=== PATIENT | male | born 1950 | race Caucasian/White ===

== ENCOUNTER 2016-10-13 13:09 | Emergency (ER) | payer OTHER, MEDICAID ==
[2016-10-13 13:29] VITALS: RESP 18
--- NOTE | 2016-10-13 13:48 | EDPHY ---
H & P Time Seen by Provider: 10/13/16 13:21 HPI/ROS: CHIEF COMPLAINT: abdominal pain HISTORY OF PRESENT ILLNESS: Patient is a 66-year-old male who presents to the emergency department with ongoing abdominal discomfort for the past 3 weeks. I think I have a viral infection. It has been going on for over 3 weeks. Patient states that he has periumbilical discomfort. This initially was waxing and waning but is been constant for the past 5-7 days. His partner brought amoxicillin back from [place] he has taken 3 tablets in the last 24 hours. He has had nausea with dry heaves. He had 1 episode of diarrhea 2 days ago that was black. He has not had any other episodes of black stool. He denies fevers or chills. No dysuria or frequency. REVIEW OF SYSTEMS: My complete review of systems is negative except as mentioned in the HPI. Past Medical/Surgical History: Includes reactive airway disease, BPH, hypertension, PTSD, depression, alcohol abuse Past surgical history: Vasectomy, tonsillectomy Social history: The patient drinks minimally. He stop smoking cigarettes 4 days ago. He uses marijuana regularly. Smoking Status: Heavy smoker Physical Exam: Vitals noted. GENERAL: Well-appearing, in no acute distress, alert. HEENT: Eyes normal to inspection, normal pharynx, no signs of dehydration. NECK: No thyromegaly, no lymphadenopathy, supple. RESPIRATORY: Clear to auscultation bilaterally, no rales, rhonchi or wheezing. CVS: Regular rate and rhythm, no rubs, murmurs, or gallops. ABDOMEN: Soft, mild epigastric tenderness to palpation with no rebound or guarding, nondistended, no organomegaly. BACK: Normal to inspection, no CVA tenderness. SKIN: Normal color, no rash, warm, dry. No pallor. EXTREMITIES: No pedal edema, no calf tenderness, no joint swelling. NEURO/PSYCH: Alert and oriented x3, normal mood and affect, normal motor sensory exam. Constitutional: Initial Vital Signs Temperature (C) 36.8 C 10/13/16 13:28 Heart Rate 64 10/13/16 13:28 Respiratory Rate 18 10/13/16 13:28 Blood Pressure 139/82 H 10/13/16 13:28 O2 Sat (%) 98 10/13/16 13:28 O2 Delivery Mode Room Air Allergies/Adverse Reactions: Penicillins Allergy (Unknown, Verified 11/21/12 19:31) ciprofloxacin [From Cipro] Allergy (Verified 11/21/12 19:31) ciprofloxacin HCl [From Cipro] Allergy (Verified 11/21/12 19:31) doxazosin Allergy (Verified 11/21/12 19:31) oxycodone [Oxycodone] Allergy (Verified 11/21/12 19:31) Other-Enter Comments Sulfa (Sulfonamide Antibiotics) Allergy (Verified 11/21/12 19:31) Home Medications: Medication Instructions Recorded Herbals/Supplements -Info Only 1 tab DAILY PRN 11/21/12 CALCIUM 600 + VIT D TABLET 1 tab DAILY 06/22/16 CRANBERRY 1 tab DAILY 06/22/16 Glucosamine 1 tab DAILY 06/22/16 IBUPROFEN 2 tab Q2-4PRN PRN 06/22/16 Multivitamin (*) 1 tab DAILY 06/22/16 VITAMIN A & D SOFTGEL 1 tab DAILY 06/22/16 VITAMIN B COMP W-C 1 tab DAILY 06/22/16 VITAMIN E 1 tab DAILY 06/22/16 Hydrocodone/APAP 5/325 [[place] 1 - 2 tab PO Q4 #13 tab 10/13/16 5/325 (RX)] Tamsulosin HCl [Flomax] 0.4 mg PO DAILY #4 cap 10/13/16 Medical Decision Making ED Course/Re-evaluation: In the emergency department I discussed possible etiologies with the patient's care provider. IV was placed. Laboratory studies were ordered. Patient was given normal saline 500 mL IV for hydration. Patient was given Pepcid 20 mg IV. I rechecked the patient on numerous occasions while here. He is stable throughout his stay. CT of the abdomen pelvis: Please refer the dictated report. The patient is noted to have multiple kidney stones bilaterally. The patient does have a left stone in the ureter. There also stones noted in the bladder. I discussed the result with the patient. I had not yet obtained a urine. This was ordered. Patient requested discharge. I explained my reasons for wanting wait for the urine sample. My repeat exam abdomen was soft nontender nondistended. 18 20: Urine showed red cells with no signs of infection. I discussed this with the patient. Patient is requesting discharge. I informed him of the treatment of kidney stones. He will follow up with Urology. At time of discharge she was feeling better. Abdomen is soft, nontender nondistended. He was given a prescription of Flomax as well as hydrocodone. I gave the patient warnings prior to leaving. He will return with worsening symptoms. Differential Diagnosis: My differential includes but is not limited to small-bowel obstruction, perforation, peptic ulcer disease, cholecystitis, pancreatitis, electrolyte abnormality, sugar abnormality, volvulus, intussusception, GI bleed, diverticulitis - Data Points Laboratory Results: Laboratory Results 10/13/16 14:43 10/13/16 14:43 10/13/16 10/13/16 17:48 14:43 WBC 9.36 10^3/uL (3.80-9.50) RBC 4.58 10^6/uL (4.40-6.38) Hgb 13.4 L g/dL (13.7-17.5) Hct 40.1 % (40.0-51.0) MCV 87.6 fL (81.5-99.8) MCH 29.3 pg (27.9-34.1) MCHC 33.4 g/dL (32.4-36.7) RDW 12.9 % (11.5-15.2) Plt Count 281 10^3/uL (150-400) MPV 11.1 fL (8.7-11.7) Neut % (Auto) 73.0 % (39.3-74.2) Lymph % (Auto) 18.9 % (15.0-45.0) [place] % (Auto) 6.7 % (4.5-13.0) Eos % (Auto) 0.7 % (0.6-7.6) Baso % (Auto) 0.5 % (0.3-1.7) Nucleat RBC Rel Count 0.0 % (0.0-0.2) Absolute Neuts (auto) 6.82 H 10^3/uL (1.70-6.50) Absolute Lymphs (auto) 1.77 10^3/uL (1.00-3.00) Absolute Monos (auto) 0.63 10^3/uL (0.30-0.80) Absolute Eos (auto) 0.07 10^3/uL (0.03-0.40) Absolute Basos (auto) 0.05 10^3/uL (0.02-0.10) Absolute Nucleated RBC 0.00 10^3/uL (0-0.01) Immature Gran % 0.2 % (0.0-1.1) Immature Gran # 0.02 10^3/uL (0.00-0.10) Sodium 142 mEq/L (134-144) Potassium 3.6 mEq/L (3.5-5.2) Chloride 101 mEq/L (97-110) Carbon Dioxide 28 mEq/l (22-31) Anion Gap 13 mEq/L (8-16) BUN 16 mg/dL (7-23) Creatinine 0.8 mg/dL (0.7-1.3) Estimated GFR > 60 Glucose 96 mg/dL (70-100) Calcium 9.6 mg/dL (8.5-10.4) Urine Color YELLOW Urine Appearance HAZY Urine pH 7.0 (5.0-7.5) Ur Specific [place] > 1.035 H (1.002-1.030) Urine Protein NEGATIVE (NEGATIVE) Urine Ketones TRACE H (NEGATIVE) Urine Blood 3+ H (NEGATIVE) Urine Nitrate NEGATIVE (NEGATIVE) Urine Bilirubin NEGATIVE (NEGATIVE) Urine Urobilinogen NEGATIVE EU (0.2-1.0) Ur Leukocyte Esterase NEGATIVE (NEGATIVE) Urine RBC 50-182 H /hpf (0-3) Urine WBC 1-3 /hpf (0-3) Ur Epithelial Cells TRACE /lpf (NONE-1+) Urine Mucus 4+ H /lpf (NONE-1+) Ur Culture Indicated? NOT INDICATED (NI) Urine Glucose NEGATIVE (NEGATIVE) Departure - Departure Disposition: Home, Routine, Self-Care Clinical Impression: Kidney stone Abdominal pain Qualifiers: Abdominal location: epigastric Qualifier Code: (R10.13) Epigastric pain Condition: Good Instructions: Abdominal Pain (ED), Kidney Stones (ED) Additional Instructions: Return with increasing pain, fever, vomiting or any other concerns. Referrals: Gerald Seay MD [Medical Doctor] - 5-7 days, if not improved Prescriptions: Tamsulosin HCl [Flomax] 0.4 mg PO DAILY #4 cap Hydrocodone/APAP 5/325 [Fisher 5/325 (RX)] 1 - 2 tab PO Q4 #13 tab
[2016-10-13 14:57] LABS: % IMMATURE GRANULYOCYTES 0.2 % (0.0-1.1); ABSOLUTE IMMATURE GRANULOCYTES 0.02 10^3/uL (0.00-0.10); ADD DIFF? NO; ADD MORPH? NO; ADD SCAN? NO; ATYPICAL LYMPHOCYTE FLAG 0 (0-99); FRAGMENT RBC FLAG 0 (0-99); HEMATOCRIT 40.1 % (40.0-51.0); HEMOGLOBIN 13.4 g/dL (13.7-17.5); LEFT SHIFT FLG 0 (0-99); LIPEMIA HEMOLYSIS FLAG 80 (0-99); MEAN CELL HEMOGLOBIN 29.3 pg (27.9-34.1); MEAN CELL HEMOGLOBIN CONCENTR. 33.4 g/dL (32.4-36.7); MEAN CELL VOLUME 87.6 fL (81.5-99.8); MEAN PLATELET VOLUME 11.1 fL (8.7-11.7); PLATELET CLUMPS FLAG 10 (0-99); PLATELET COUNT 281 10^3/uL (150-400); RED BLOOD CELL COUNT 4.58 10^6/uL (4.40-6.38); RED CELL DISTRIBUTION WIDTH 12.9 % (11.5-15.2)
[2016-10-13 15:15] LABS: ANION GAP 13 mEq/L (8-16); CALCIUM 9.6 mg/dL (8.5-10.4); CARBON DIOXIDE 28 mEq/l (22-31); CHLORIDE 101 mEq/L (97-110); CREATININE 0.8 mg/dL (0.7-1.3); GLOMERULAR FILTRATION RATE > 60; GLUCOSE 96 mg/dL (70-100); POTASSIUM 3.6 mEq/L (3.5-5.2); SODIUM 142 mEq/L (134-144)
[2016-10-13] MEDS ORDERED: IOPAMIDOL (ISOVUE-300) 100 ML BTL IV ONE (15:43)
--- NOTE | 2016-10-13 16:51 | CT ---
CT Scan of the Abdomen and Pelvis (With Contrast) Clinical Indications: Abdominal pain Technique: 90 mL of Isovue 300 were given intravenously by machine power injection. Multidetector he lical CT imaging was performed from the diaphragm to the symphysis pubis. 10 minute delayed imaging w as also obtained. Dose reduction techniques were utilized. COMPARISON STUDY: April 11, 2012. Findings: Lung bases are clear. Liver and spleen enhance normally. The pancreas is normal in appearan ce. Fusiform thickening of the adrenal glands is again noted bilaterally compatible with adenomatous hyperplasia, unchanged. Multiple nonobstructing calculi are present within both kidneys, up to 8 mm in size on the left. Ther e are multiple renal cysts present bilaterally. A 5 mm nonobstructing calculus is present within the proximal left ureter at the UPJ. Within the pelvis, there are 2 calculi present within the urinary bladder, measuring 8 mm posteriorly on the right and 5 mm posteriorly on the left. The prostate is diffusely enlarged. Extensive sigmoid diverticulosis is identified without features of acute diverticulitis. Vascular calcifications are present within the abdominal aorta and proximal iliac vessels without ane urysm. Impression: 1. Extensive bilateral nephrolithiasis. 5 mm nonobstructing calculus proximal left ureter, with 2 sep arate calculi present in the dependent urinary bladder. 2. Sigmoid diverticulosis without CT evidence of acute diverticulitis. 3. Bilateral adrenal adenomatous hyperplasia, unchanged. Results called to Dr. Holden at 1645 PM
[2016-10-13 18:06] LABS: COLOR YELLOW; LEUKOCYTE ESTERASE,URINE NEGATIVE (NEGATIVE); NITRITE,URINE NEGATIVE (NEGATIVE)
[2016-10-13 18:13] LABS: MUCUS 4+ /lpf (NONE-1+); RBC,URINE 50-182 /hpf (0-3)
[2016-10-13 18:31] VITALS: BP 179/105; PULSE 86; TEMP 98.4; O2SAT 97
== END 2016-10-13 18:31 | disposition home or self-care (01) ==
LOC: EDBD → EDUNIT#
DX: N20.0 Calculus of kidney (principal); I10 Essential (primary) hypertension; J45.909 Unspecified asthma, uncomplicated; F17.200 Nicotine dependence, unspecified, uncomplicated
CPT/HCPCS: 74177; 99285; Q9967

== ENCOUNTER 2017-12-11 04:14 | Inpatient (IN) | payer OTHER, MEDICAID ==
[2017-12-11] MEDS ORDERED: FAMOTIDINE 20 MG TAB PO ONE (04:22)
[2017-12-11] MEDS ORDERED: PANTOPRAZOLE SODIUM 40 MG VIAL IVP ONE (04:22)
[2017-12-11] MEDS ORDERED: NS 1,000 ML IV ONE ×2 (04:22)
[2017-12-11] MEDS ORDERED: ONDANSETRON 4 MG/2 ML VIAL IVP ONE (04:22)
[2017-12-11 04:29] LABS: PLATELET COUNT 308 10^3/uL (150-400)
[2017-12-11] MEDS ORDERED: FAMOTIDINE 20 MG/2 ML SDV IVP ONE (04:30)
[2017-12-11] MEDS ORDERED: FAMOTIDINE 20 MG/NACL/50 ML BAG IV ONE (04:30)
[2017-12-11 04:41] LABS: INR 1.1 (0.83-1.16); PROTIME(PATIENT) 14.4 SEC (12.0-15.0)
--- NOTE | 2017-12-11 05:30 | EDPHY ---
H & P Stated Complaint: vomiting blood Time Seen by Provider: 12/11/17 04:23 HPI/ROS: HPI The patient presents with hematemesis which has been present since 3:00 a.m.. Last night, he was not feeling well, he was trying to sleep at 3:00 a.m. But was belching. He went to the bathroom and vomited bloody vomitus with clots. He believes he fainted and then went back to bed. He had 2 other similar episodes of vomiting and did faint again. He felt very dizzy and was concerned so he called the paramedics. Upon arrival, they noticed about 300 mL of bright red blood on the ground. His initial blood pressure was 80 over palpable. They started him on IV fluids with some improvement in his blood pressure. Currently, the patient is feeling lightheaded and slightly nauseated. He does not have any abdominal pain. He denies any dark or bloody stools. He takes aspirin 325 mg daily for prostatitis. He has no prior history of similar. He denies any recent alcohol use and says that he drinks a case of beer in a year. He lives alone.. REVIEW OF SYSTEMS Constitutional: No fever, no chills. Eyes: No discharge. ENT: No sore throat. Cardiovascular: No chest pain, no palpitations. Respiratory: No cough, no shortness of breath. Gastrointestinal: No abdominal pain, no vomiting. Genitourinary: No hematuria. Musculoskeletal: No back pain. Skin: No rashes. Neurological: No headache. PMHx: Chronic prostatitis Soc Hx: Lives in an apartment, history of tobacco use PHYSICAL General Appearance: Alert, no distress Eyes: Pupils equal and round no pallor or injection ENT, Mouth: Mucous membranes moist Respiratory: There are no retractions, lungs are clear to auscultation Cardiovascular: Regular rate and rhythm Gastrointestinal: Abdomen is soft and non-tender, no masses, bowel sounds normal Rectal exam reveals small amount of brown stool Neurological: A&O, moves all extremities Skin: Warm and dry, no rashes Musculoskeletal: Neck is supple non tender Extremities: symmetrical, full range of motion Psychiatric: Patient is oriented X 3, there is no agitation Source: Patient, EMS Exam Limitations: No limitations - Personal History Current Tetanus/Diphtheria Vaccine: Yes Current Tetanus Diphtheria and Acellular Pertussis (TDAP): Yes Tetanus Vaccine Date: 2007 - Medical/Surgical History Hx Asthma: No Hx Chronic Respiratory Disease: No Hx Diabetes: No Hx Cardiac Disease: No Hx Renal Disease: No Hx Cirrhosis: No Hx Alcoholism: No Hx HIV/AIDS: No Hx Splenectomy or Spleen Trauma: No Other PMH: PMH: Prostatitis, HTN, tonsillectomy - Social History Smoking Status: Heavy smoker Constitutional: Initial Vital Signs Temperature (C) 36.7 C 12/11/17 04:15 Heart Rate 102 H 12/11/17 04:15 Respiratory Rate 18 12/11/17 04:15 Blood Pressure 110/66 12/11/17 04:15 O2 Sat (%) 97 12/11/17 04:15 O2 Delivery Mode Room Air Allergies/Adverse Reactions: Penicillins Allergy (Unknown, Verified 12/11/17 04:25) ciprofloxacin [From Cipro] Allergy (Verified 12/11/17 04:25) ciprofloxacin HCl [From Cipro] Allergy (Verified 12/11/17 04:25) doxazosin Allergy (Verified 12/11/17 04:25) oxycodone [Oxycodone] Allergy (Verified 12/11/17 04:25) Other-Enter Comments Sulfa (Sulfonamide Antibiotics) Allergy (Verified 12/11/17 04:25) Home Medications: Medication Instructions Recorded Herbals/Supplements -Info Only 1 tab DAILY PRN 11/21/12 CALCIUM 600 + VIT D TABLET 1 tab DAILY 06/22/16 CRANBERRY 1 tab DAILY 06/22/16 Glucosamine 1 tab DAILY 06/22/16 IBUPROFEN 2 tab Q2-4PRN PRN 06/22/16 Multivitamin (*) 1 tab DAILY 06/22/16 VITAMIN A & D SOFTGEL 1 tab DAILY 06/22/16 VITAMIN B COMP W-C 1 tab DAILY 06/22/16 VITAMIN E 1 tab DAILY 06/22/16 Hydrocodone/APAP 5/325 [[place] 1 - 2 tab PO Q4 #13 tab 10/13/16 5/325 (RX)] Tamsulosin HCl [Flomax] 0.4 mg PO DAILY #4 cap 10/13/16 Aspirin 12/11/17 Gabapentin 12/11/17 Lisinopril 12/11/17 Medical Decision Making - Diagnostics EKG Interpretation: EKG: Complete interpretation has been separately recorded in the [email or web address] archive. Summary impression: Normal sinus rhythm with PVCs Differential Diagnosis: This is a 67-year-old male with history of chronic prostatitis who presents brought in by ambulance for hematemesis with multiple syncopal episodes. Found to be hypotensive by paramedics in the field. Here his blood pressure is improved and vital signs are normal. He has no ongoing vomiting. He has no epigastric tenderness. Rectal exam reveals small amount of brown stool. Differential diagnosis includes gastritis, duodenal ulcer, esophagitis. In the emergency department, patient received IV fluids, Pepcid, PPI. Labs were checked and revealed drop in hemoglobin from about 1 year ago by 4 points. He does have an anion gap acidosis and elevated BUN. I consulted with Dr. Bradley of GI who recommends keeping the patient NPO and they will see him later today. I consulted with the hospitalist public relations coordinator Dr. Parker who will admit the patient. I have updated the patient of the plan. - Data Points Laboratory Results: Laboratory Results 12/11/17 04:20 12/11/17 04:20 12/11/17 12/11/17 12/11/17 04:20 04:20 04:20 WBC RBC Hgb Hct MCV MCH MCHC RDW Plt Count MPV Neut % (Auto) Lymph % (Auto) [place] % (Auto) Eos % (Auto) Baso % (Auto) Nucleat RBC Rel Count Absolute Neuts (auto) Absolute Lymphs (auto) Absolute Monos (auto) Absolute Eos (auto) Absolute Basos (auto) Absolute Nucleated RBC Immature Gran % Immature Gran # PT 14.4 SEC SEC (12.0-15.0) INR 1.10 (0.83-1.16) APTT 23.5 SEC SEC (23.0-38.0) Sodium 148 mEq/L H mEq/L (135-145) Potassium 3.2 mEq/L L mEq/L (3.5-5.2) Chloride 109 mEq/L mEq/L (97-110) Carbon Dioxide 17 mEq/l L mEq/l (22-31) Anion Gap 22 mEq/L H mEq/L (8-16) BUN 26 mg/dL H mg/dL (7-23) Creatinine 1.0 mg/dL mg/dL (0.7-1.3) Estimated GFR > 60 Glucose 236 mg/dL H mg/dL (70-100) Calcium 8.8 mg/dL mg/dL (8.5-10.4) Total Bilirubin 0.3 mg/dL mg/dL (0.1-1.4) Conjugated Bilirubin 0.3 mg/dL mg/dL (0.0-0.5) Unconjugated Bilirubin 0.0 mg/dL mg/dL (0.0-1.1) AST 14 IU/L L IU/L (17-59) ALT 18 IU/L L IU/L (21-72) Alkaline Phosphatase 58 IU/L IU/L (38-126) Total Protein 6.2 g/dL L g/dL (6.3-8.2) Albumin 3.6 g/dL g/dL (3.5-5.0) Lipase 54 IU/L IU/L (23-300) Patient ABO/Rh A POSITIVE Antibody Screen NEGATIVE 12/11/17 04:20 WBC 11.48 10^3/uL H 10^3/uL (3.80-9.50) RBC 3.53 10^6/uL L 10^6/uL (4.40-6.38) Hgb 9.1 g/dL L g/dL (13.7-17.5) Hct 29.3 % L % (40.0-51.0) MCV 83.0 fL fL (81.5-99.8) MCH 25.8 pg L pg (27.9-34.1) MCHC 31.1 g/dL L g/dL (32.4-36.7) RDW 16.3 % H % (11.5-15.2) Plt Count 308 10^3/uL 10^3/uL (150-400) MPV 12.1 fL H fL (8.7-11.7) Neut % (Auto) 50.1 % % (39.3-74.2) Lymph % (Auto) 40.6 % % (15.0-45.0) [place] % (Auto) 7.5 % % (4.5-13.0) Eos % (Auto) 1.1 % % (0.6-7.6) Baso % (Auto) 0.4 % % (0.3-1.7) Nucleat RBC Rel Count 0.0 % % (0.0-0.2) Absolute Neuts (auto) 5.74 10^3/uL 10^3/uL (1.70-6.50) Absolute Lymphs (auto) 4.66 10^3/uL H 10^3/uL (1.00-3.00) Absolute Monos (auto) 0.86 10^3/uL H 10^3/uL (0.30-0.80) Absolute Eos (auto) 0.13 10^3/uL 10^3/uL (0.03-0.40) Absolute Basos (auto) 0.05 10^3/uL 10^3/uL (0.02-0.10) Absolute Nucleated RBC 0.00 10^3/uL 10^3/uL (0-0.01) Immature Gran % 0.3 % % (0.0-1.1) Immature Gran # 0.04 10^3/uL 10^3/uL (0.00-0.10) PT INR APTT Sodium Potassium Chloride Carbon Dioxide Anion Gap BUN Creatinine Estimated GFR Glucose Calcium Total Bilirubin Conjugated Bilirubin Unconjugated Bilirubin AST ALT Alkaline Phosphatase Total Protein Albumin Lipase Patient ABO/Rh Antibody Screen Medications Given: Sodium Chloride (Ns) 1,000 mls @ 150 mls/hr IV CONT EARLE Stop: 06/09/18 05:44 Last Admin: 12/11/17 06:38 Dose: 1,000 mls Discontinued Medications Famotidine (Pepcid) 20 mg IVP EDNOW ONE Stop: 12/11/17 04:31 Last Admin: 12/11/17 04:36 Dose: 20 mg Sodium Chloride (Ns) 1,000 mls @ 0 mls/hr IV EDNOW ONE; Wide Open PRN Reason: Protocol Stop: 12/11/17 04:23 Last Admin: 12/11/17 04:35 Dose: 1,000 mls Sodium Chloride (Ns) 1,000 mls @ 0 mls/hr IV EDNOW ONE; Wide Open PRN Reason: Protocol Stop: 12/11/17 04:23 Last Admin: 12/11/17 04:35 Dose: 1,000 mls Ondansetron HCl (Zofran) 4 mg IVP EDNOW ONE Stop: 12/11/17 04:23 Last Admin: 12/11/17 04:38 Dose: 4 mg Pantoprazole Sodium (Protonix) 80 mg IVP EDNOW ONE Stop: 12/11/17 04:23 Last Admin: 12/11/17 04:39 Dose: 80 mg Departure - Departure Disposition: [facility] Clinical Impression: Upper GI bleed, Increased anion gap metabolic acidosis Anemia Qualifiers: Anemia type: unspecified type Qualified Code(s): D64.9 - Anemia, unspecified Condition: Fair
[2017-12-11] MEDS ORDERED: ONDANSETRON 4 MG/2 ML VIAL IVP PRN ×2 (05:33→11:22)
[2017-12-11] MEDS ORDERED: LORazepam 2 MG/ML INJ IVP PRN (05:33)
[2017-12-11] MEDS ORDERED: PROTOCOL MAGNESIUM 1 DOSE IV PRN (06:12)
[2017-12-11] MEDS ORDERED: PROTOCOL POTASSIUM 1 DOSE MISC PRN (06:12)
[2017-12-11] MEDS: NS 1,000 ML IV SCH (06:38)
--- NOTE | 2017-12-11 08:11 | GHP ---
[f rep st] HISTORY AND PHYSICAL DATE OF ADMISSION: 12/11/2017 PRIMARY CARE PHYSICIAN: [facility]. SOURCE: Patient provides history, is a fair historian. EMR was reviewed and case discussed with ED provider. CHIEF COMPLAINT: Hematemesis. HISTORY OF PRESENT ILLNESS: This is a very pleasant 67-year-old gentleman with past medical history significant for hypertension, prostatitis, and murmur, who presents to the emergency department today with complaints of several episodes of hematemesis and syncope. The patient reports that he woke up at approximately 3:30 with a sensation that he had something in his throat. He also developed some nausea and subsequently had an episode of syncope, and woke up, he was covered in blood. The patient woke up. He had noted some lightheadedness. No chest pain. No palpitations. No shortness of eva th, and he subsequently had 2 more episodes of hematemesis, at which point he called 9-1-1. He denie s any recent melena or changes in stool. No diarrhea. He denies any abdominal pain or discomfort. He does note several days of increasing fatigue, but shortness of breath or presyncope until this mor geronimo. EMS arrived and reported to ED provider that they had noted approximately 300 or more mL of bl ood in the patient's bathroom and home. His initial systolic blood pressure was noted to be in the 8 0s. The patient does report a history of melenic stools back in July, which was felt to possibly be related to an acute GI illness. Patient states that he had guaiac occult stools performed during and following recovery, which returned negative. He never underwent any kind of colonoscopy or EGD previously. In the emergency department, the patient was noted to have slightly decreased blood pressure, which d id resolve after 2 L of IV fluid. Systolically was in the 90s, now in the low 110s. The patient has not had any further episodes of hematemesis, and heart rate has normalized from the low 100 to 70s a nd 80s. REVIEW OF SYSTEMS: Patient reporting a 1-week history of clear rhinorrhea. Otherwise, remainder rev iew of systems negative except as noted above. ALLERGIES: To penicillin, Cipro, doxazosin, oxycodone, sulfa. HOME MEDICATIONS: Including lisinopril, gabapentin, aspirin, vitamin E, vitamin B, vitamin A, tamsul osin, multivitamin, ibuprofen, aspirin. The patient takes 325 mg aspirin on a daily basis reported for his prostatitis. [place] p.r.n., glucos amine, cranberry, calcium with vitamin D tabs. PAST MEDICAL HISTORY: Significant for hypertension, prostatitis, history of murmur. PAST SURGICAL HISTORY: Significant for tonsillectomy and adenoidectomy, and vasectomy. FAMILY HISTORY: Significant for sister with peptic ulcer disease. SOCIAL HISTORY: Patient lives with his fiancee. He quit smoking less than 3 months ago. He reports drinking just 1 drink weekly, and marijuana once monthly. Cor status is full. PHYSICAL EXAM: VITAL SIGNS: Vitals reported on scene with systolic blood pressure in the 80s, impro kala to 110/66. Upon arrival to the ER, the heart rate 102, respiratory rate 18, O2 sat is 97% on mago m air, temperature 36.7. Current vitals available: Blood pressure 151/76, heart rate 83, respirator y rate 18, O2 sat 98% on room air, with a temperature 36.4. GENERAL: No acute distress. Patient is lying quietly in bed. He does appear fatigued and pale. HEAD: Normocephalic, atraumatic. SKIN: Patient with a black irregularly irregular outlined flat mole on his left adventism. Otherwise, a few _ on his back, and pale. ENT: Mucous membranes appear moist. Patient does have a few drops of dried blood around his mouth. No nasal discharge. EYES: Extraocular muscles are intact. Pupils equal, round, react t o light bilaterally and symmetric. No scleral icterus or conjunctival injection. Patient does have pale conjunctiva bilaterally. NECK: Supple. Trachea midline. CV: Regular rate and rhythm. Patie nt with a 2/6 systolic murmur appreciated at the left sternal border. ABDOMEN: Positive bowel sounds. Soft, nontender to palpation. No rebound, guarding, or masses appr eciated. RESPIRATORY: Lungs are clear to auscultation bilaterally. No wheezes, rales, or rhonchi. : No s uprapubic tenderness to palpation. No Tovar catheter in place. EXTREMITIES: Generalized weakness, but moves all extremities. Strength overall grossly normal. NEURO: No crania l nerve deficits. No facial drooping. Moves all extremities. Sensation intact. PSYCH: Thought process, content and questions are appropriate. Patient is not agitated. He is plea angelique and cooperative. LABORATORY STUDIES: WBC 11.48, H and H is 9.1, 29.3, MCV 83.0, platelet count is 308, MCV of 83.0. No bands. PT 14.4, INR is 1.10, PTT is 23.5. Sodium 148, potassium 3.2, chloride 109, CO2 of 17, an ion gap 22, BUN is 26, creatinine is 1.0. GFR greater than 60, glucose 236, calcium 8.8, total bili 0.3, conjugated bili 0.3, ALT is 18, AST is 14, alk phos is 58, total protein 6.2, albumin 3.6, lipas e 54. ASSESSMENT AND PLAN: A pleasant 67-year-old gentleman, who presents to the emergency department foll owing episode hematemesis and syncope. 1. Upper gastrointestinal bleeding. Differential diagnosis including bleeding gastric ulcer, gastro kristine, and nonsteroidal antiinflammatory drugs induced possibility, with daily aspirin use, atriovent ricular malformation, less likely mass. The patient has not had any further episodes of hematemesis. He is status post famotidine and Protonix in the emergency department. Gastroenterology was consul branden from the emergency department. Will plan to see the patient this morning and likely undergo endo scopy. The patient will remain n.p.o. until evaluated by GI. 2. Acute blood loss anemia with acute upper gastrointestinal bleeding as noted above. The patient's initial H and H are stable. Blood pressures are stabilized. The patient would accept blood product s if needed, and he has already been typed and screened from the emergency department. We will plan to repeat an H and H 4 hours from the initial. 3. Hypotension. Transient in setting of acute blood loss anemia. Patient has responded appropriatel y to IV fluids. We will plan to monitor H and H later this morning. Transfuse as needed. Continue with IV fluid hydration. 4. Nausea and vomiting, improved. Continue with antiemetics p.r.n. 5. Hyponatremia, likely related to volume contraction in the setting of acute nausea, vomiting, and hematemesis. Status post 2 L IV fluid in the emergency department. We will plan to repeat a BMP, wi th a repeat H and H in a few hours. 6. Hypokalemia secondary to gastrointestinal losses with hematemesis. We will check a mag and repea t a BMP in a few hours. Replacement protocol has been ordered, IV while patient is n.p.o. 7. Anion gap acidosis. The patient does have mildly elevated glucose, but suspect this is more rela branden to lactic acidosis in setting of acute blood loss contraction. Continue with IV fluid hydration, status post 2 L in the emergency department and a repeat BMP later this morning. 8. Hyperglycemia without previous history of diabetes. Continue with IV fluid hydration. The patie nt will monitor with Accu-Cheks and p.r.n. sliding scale. If continues to rise, we will plan to furt her evaluate, otherwise, anticipate with fluids should improve and patient can follow up with primary care physician. 9. Chronic prostatitis. Holding nonsteroidal antiinflammatory drugs and p.o. medications at this ti me. Monitor for any evidence of urinary retention. 10. Benign essential hypertension. Blood pressures just recently improved after IV fluids. We will plan to monitor. Consider p.r.n. antihypertensives if needed. 11. Fluid, electrolyte, nutrition, IV fluids with normal saline. Electrolyte monitoring replacement as noted above. Inpatient diet will be n.p.o. at this time, pending GI evaluation. 12. Prophylaxis. Sequential compression devices. Holding anticoagulation in the setting of acute g astrointestinal bleeding. COR STATUS: Full. DISPOSITION: Patient admitted to observation status, on the medical floor at this time pending GI ev aluation and likely endoscopy. /[id number]/MODL
[2017-12-11] MEDS ORDERED: MAGNESIUM SULF 1 GM/DEXTROSE 100 ML IV ONE (09:06)
--- NOTE | 2017-12-11 09:07 | CPEKG ---
Heart Rate: 77 RR Interval: 779 P-R Interval: 136 QRSD Interval: 102 QT Interval: 432 QTC Interval: 489 P Corona: 56 QRS Corona: 40 T Wave Corona: -20 EKG Severity - ABNORMAL ECG - EKG Impression: SINUS RHYTHM EKG Impression: VENTRICULAR PREMATURE COMPLEX EKG Impression: PROBABLE INFERIOR INFARCT, AGE INDETERMINATE EKG Impression: BORDERLINE PROLONGED QT INTERVAL EKG Impression: NONSPECIFIC ST_T WAVE ABNORMAILITES Electronically Signed By: Mitchell Gray 18-Dec-2017 10:32:46
[2017-12-11] MEDS ORDERED: POTASSIUM Cl (KCl) 100 ML IV SCH ×2 (09:15→23:45)
--- NOTE | 2017-12-11 10:02 | HOSPPROG ---
Hospitalist Progress Note Assessment/Plan: Patient is a 67-year-old gentleman who presented the emergency room with heme at emesis. He developed some nausea and then had a syncopal episode and when he woke up he was covered in blood. He called 911 and was transferred to the emergency room. Today is my 1st encounter with the patient. Chart reviewed. * upper GI bleed -hemoglobin hematocrit have trended down -gastroenterology is to see him today -will keep him NPO continue a PPI * acute blood loss anemia -serial h & H * hypotension -resolved * hypokalemia -on potassium protocol * anion gap acidosis -improving w hydration * hyperglycemia * chronic prostatitis * BPH *Plan: to be evaluated by GI today, cont supportive care Subjective: Negro has no c/o Objective: Vital Signs Temp Pulse Resp BP Pulse Ox 36.4 C 83 18 151/76 H 98 12/11/17 06:12 12/11/17 06:12 12/11/17 06:12 12/11/17 06:12 12/11/17 06:12 Laboratory Results 12/11/17 08:32 12/11/17 08:32 12/10/17 12/11/17 12/12/17 05:59 05:59 05:59 Intake Total 1999 Balance 1999 PT 14.4 SEC (12.0-15.0) 12/11/17 04:20 INR 1.10 (0.83-1.16) 12/11/17 04:20 - Physical Exam Constitutional: no apparent distress, appears nourished Eyes: PERRL Ears, Nose, Mouth, Throat: hearing normal Respiratory: no respiratory distress Skin: warm, No normal color (pale) Musculoskeletal: full muscle strength Neurologic: AAOx3 Psychiatric: interacting appropriately, not anxious ICD10 Worksheet Patient Problems: Problems Problem Status Onset Anemia Acute Increased anion gap metabolic acidosis Acute Upper GI bleed Acute Prostatitis Active
[2017-12-11] MEDS ORDERED: PANTOPRAZOLE SODIUM 40 MG VIAL IVP SCH (10:15)
[2017-12-11] MEDS ORDERED: PROPOFOL/EMULSION 500 MG/50 ML BOTTLE IV ONE (11:06)
[2017-12-11] MEDS ORDERED: NALOXONE HCL 0.4 MG/ML INJ IVP PRN (11:22)
[2017-12-11] MEDS ORDERED: ALBUTEROL 3 ML DEYVIAL IH PRN (11:22)
--- NOTE | 2017-12-11 11:22 | PDANEPAE ---
ANE Past Medical History - Cardiovascular History Hx Hypertension: Yes Hx Arrhythmias: No Hx Chest Pain: No Hx Coronary Artery / Peripheral Vascular Disease: No Hx CHF / Valvular Disease: No Hx Palpitations: No - Pulmonary History Hx COPD: No Hx Asthma/Reactive Airway Disease: Yes Hx Recent Upper Respiratory Infection: No Hx Oxygen in Use at Home: No Hx Sleep Apnea: No Sleep Apnea Screening Result - Last Documented: Positive - Neurologic History Hx Cerebrovascular Accident: No Hx Seizures: No Hx Dementia: No - Endocrine History Hx Diabetes: No - Renal History Hx Renal Disorders: Yes Renal History Comment: HAD A RENAL SHUTDOWN AND KIDNEY STONES IN 2011 AFTER TOO MUCH IBUPROFEN. PROSTATITIS - Liver History Hx Hepatic Disorders: No - Neurological & Psychiatric Hx Hx Neurological and Psychiatric Disorders: Yes Neurological / Psychiatric History Comment: PTSD - Cancer History Hx Cancer: No - Congenital Disorder History Hx Congenital Disorders: No - GI History Hx Gastrointestinal Disorders: No - Chronic Pain History Chronic Pain: Yes (PROSTATE PAIN) - Surgical History Prior Surgeries: VASECTOMY 1983 ANE Review of Systems Review of Systems: ANE Patient History - Allergies Allergies/Adverse Reactions: Penicillins Allergy (Unknown, Verified 12/11/17 04:25) ciprofloxacin [From Cipro] Allergy (Verified 12/11/17 04:25) ciprofloxacin HCl [From Cipro] Allergy (Verified 12/11/17 04:25) doxazosin Allergy (Verified 12/11/17 04:25) oxycodone [Oxycodone] Allergy (Verified 12/11/17 04:25) Other-Enter Comments Sulfa (Sulfonamide Antibiotics) Allergy (Verified 12/11/17 04:25) - Home Medications Home Medications: Glucosamine Sulfate [Glucosamine Sulfate 500 MG (*)] 500 mg PO HS 06/22/16 [ Last Taken 12/10/17] Ibuprofen [Motrin (*)] 200 - 400 mg PO Q4-6PRN PRN 06/22/16 [Last Taken Unknown] Multivitamins [Multivitamin (*)] 1 each PO HS 06/22/16 [Last Taken 12/10/17] Aspirin [Aspirin 325 mg (*)] 975 mg PO HS 12/11/17 [Last Taken 12/10/17] Calcium Carb W/Vit D [Calcium Carb W/Vit D 500/200 (*)] 500 mg PO HS 12/11/17 [ Last Taken 12/10/17] Citalopram Hydrobromide [celeXA 10 MG] 10 mg PO HS 12/11/17 [Last Taken 12/10/17 ] Finasteride [Proscar 5 MG (*)] 5 mg PO HS 12/11/17 [Last Taken 12/10/17] Gabapentin [Neurontin 100 MG (*)] 100 mg PO BID 12/11/17 [Last Taken 12/10/17 21 :00] Herbals/Supplements -Info Only 1 ea PO DAILY 12/11/17 [Last Taken Unknown] Lisinopril [Zestril 5 mg (*)] 5 mg PO HS 12/11/17 [Last Taken 12/10/17] Tamsulosin HCl [Flomax 0.4 MG (*)] 0.4 mg PO BID 12/11/17 [Last Taken 12/10/17 21:00] - NPO status NPO Since - Liquids (Date): 12/11/17 NPO Since - Liquids (Time): 00:00 NPO Since - Solids (Date): 12/11/17 NPO Since - Solids (Time): 00:00 - Smoking Hx Smoking Status: Heavy smoker ANE Labs/Vital Signs - Labs Result Diagrams: 12/11/17 08:32 12/11/17 08:32 - Vital Signs Blood Pressure: 153/99 Heart Rate: 71 Respiratory Rate: 18 O2 Sat (%): 91 Height: 170 cm Weight: 69 kg ANE Physical Exam - Airway Neck exam: decreased ROM Mallampati Score: Class 3 Mouth exam: normal dental/mouth exam, poor dentition - Pulmonary Pulmonary: no respiratory distress, no rales or rhonchi, clear to auscultation - Cardiovascular Cardiovascular: regular rate and rhythym, no murmur, rub, or gallop - ASA Status ASA Status: III, E ANE Anesthesia Plan Anesthesia Plan: GA with mask
--- NOTE | 2017-12-11 11:36 | POSTANESTH ---
Post Anesthetic Evaluation Cardiovascular Status: Normal, Stable, Similar to Pre-Op Cond Respiratory Status: Normal, Stable, Similar to Pre-op Cond. Level of Consciousness/Mental Status: Can Participate in Eval Pain Control: Adequate, Prn Tx Ordered Nausea/Vomiting Control: Adequate, Prn Tx Ordered Complications Possibly Related to Anesthesia: None Noted
[2017-12-11] MEDS ORDERED: CALCIUM CHLORIDE 1 GM/10 ML INJ ONE (11:37)
[2017-12-11] MEDS ORDERED: LIDOCAINE 2% 5 ML SDV ONE (11:37)
--- NOTE | 2017-12-11 11:45 | GIREPORT ---
[facility] - Endoscopy Department Patient Name: Negro Ronquillo Procedure Date: 12/11/2017 11:09 AM Patient Type: Inpatient Attending MD/ ER Physician: Antonella Bradley MD Procedure: Upper GI endoscopy Indications: Hematemesis Providers: Antonella Bradley MD Medicines: Sedation Administered by an Anesthesia Professional Complications: No immediate complications. Description of Procedure: After obtaining informed consent, the endoscope was passed under direct vision. Throughout the procedure, the patient's blood pressure, pulse, and oxygen saturations were monitored continuously. The Endoscope was intro duced through the mouth, and advanced to the third part of duodenum. The uppe r GI endoscopy was accomplished without difficulty. The patient tolerated th e procedure well. Findings: The examined esophagus was normal. One non-bleeding cratered gastric ulcer with a nonbleeding visible vess el ([place] Class IIa) was found on the greater curvature of the gastric antrum. The lesion was thirty mm by thirty mm in largest dimension. The examined duodenum was normal. Clotted blood was found in the gastric body. Estimated Blood Loss: Estimated blood loss: none. Post Op Diagnosis: - Normal esophagus. - Non-bleeding gastric ulcer with a nonbleeding visible vessel ([place] Class IIa). - Normal examined duodenum. - Clotted blood in the gastric body. - No specimens collected. Recommendation: - Return patient to hospital [facility] for ongoing care. - Use a proton pump inhibitor IV gtt. - Observe patient's clinical course. - Very large ulce (>30mm), with large blood vessel (3-4mm?) coursing ac ross base of ulcer. - No active bleeding, but high risk of rebleeding. - Given size of ulcer, coursing plump although non bleeding vessel, no endoscopic therapy was applied. Significant risk that endoscopic therap y would lead to bleeding (and perhaps brisk bleeding). - Will consider IR and surgical consults, if rebleeds. Could consider r epeat EGD, but endoscopic interventions may be underpowered relative to size of ulcer and size of vessel. Attending Participation: I personally performed the entire procedure. Antonella Bradley MD Antonella Bradley MD 12/11/2017 11:44:46 AM This report has been signed electronicallyDaus Kirk MD Number of Addenda: 0 Note Initiated On: 12/11/2017 11:09 AM [email or web address]
--- NOTE | 2017-12-11 12:01 | GCON ---
[f rep st] CONSULTATION INPATIENT CONSULTATION NOTE REQUESTING PHYSICIAN: Dr. Leon. REASON FOR CONSULTATION: Hematemesis. HISTORY OF PRESENT ILLNESS: Briefly, the patient is a pleasant 67-year-old male who was admitted to the hospital on 12/11/2017 for the evaluation of hematemesis. He reports he had episodes of syncope as well. He was in his usual state of health until yesterday when he had multiple episodes of bright red nausea and vomiting. He reports no episodes of melena. He has had no prior history of GI bleed ing. In general, he reports he has a "cast iron" stomach. He has no prior history of nausea, heartb urn, dyspepsia, etc. Of note, he has been using chronic nonsteroidal therapies for the management of prostatitis. He is t aking multiple doses on a daily basis for a long time. ALLERGIES: Penicillin, Cipro, doxazosin, oxycodone, and sulfa. HOME MEDICINES: Lisinopril, gabapentin, aspirin, multivitamins, tamsulosin, ibuprofen, [place] p.r.n., glucosamine. PAST MEDICAL HISTORY: Hypertension, prostatitis. PAST SURGICAL HISTORY: Tonsillectomy, adenoidectomy, and vasectomy. FAMILY HISTORY: The patient reports he had a sister with history of peptic ulcer disease. REVIEW OF SYSTEMS: A complete 14-point review was undertaken with the patient and is negative except for those details described in the History of Present Illness. PHYSICAL EXAM: GENERAL: This is a well-developed male, in no apparent distress. His pupils are equ al, round, reactive to light and accommodation. His sclerae are nonicteric. His oropharynx is clear . NECK: Supple without lymphadenopathy. HEART: Regular without murmur. ABDOMEN: Soft, nontender . He has normoactive bowel sounds. EXTREMITIES: Free of cyanosis, clubbing, and edema. NEURO: Gr ossly nonfocal. SKIN: Warm and dry. JOINTS: Show no arthritis. PSYCH: Normal mood and affect. LABORATORY DATA: On admission, he had a white count of 11.48, hemoglobin of 9.1, hematocrit of 29.3, platelet count of 308. This morning, his hemoglobin is 8.0 with hematocrit of 25.4, INR of 1.1. So dium of 148, potassium of 3.2, chloride of 109, bicarb of 17. Creatinine of 1.0, BUN of 26. AST, AL T, alk phos, total protein, albumin, and lipase were normal. IMPRESSION AND RECOMMENDATIONS: The patient presents to the hospital after syncopal episodes in the setting of hematemesis. Given his chronic nonsteroidal use, the leading differential includes peptic ulcer disease. I recommend he undergo upper endoscopy. Given his acute bleeding status, we will pl an to do this with general anesthesia in order to make sure he is comfortable and still for the exam. /[id number]/MODL
[2017-12-11] MEDS: PANTOPRAZOLE SODIUM 40 MG VIAL IVP SCH ×2 (16:26→22:15)
[2017-12-11] MEDS: ACETAMINOPHEN 650 MG SUPP PR PRN (23:22)
[2017-12-11] MEDS ORDERED: POTASSIUM Cl (KCl) 10 MEQ in NS 100 ML IV SCH (23:30)
[2017-12-12] MEDS: POTASSIUM Cl (KCl) 10 MEQ in NS 100 ML IV SCH ×2 (00:23→19:33)
[2017-12-12] MEDS: PANTOPRAZOLE SODIUM 40 MG VIAL IVP SCH ×4 (04:08→21:54)
--- NOTE | 2017-12-12 09:38 | SOAPPROG ---
[facility] Progress Note Assessment/Plan: Assessment: 1. GI BLEED/LARGE GASTRIC ULCER - H/H stable but low - required 2 U PRBCs yesterday - no endo intervention - no bleeding at endoscopy, and concern that in setting of larger pulsatile large vessel coursing in base of large ulcer, endo intervention would insight arterial bleeding from large vessel) - continue PPI IV gtt - Avoid NSAIDs - see to check h.pylori status - if has rebleed, will need to consider EGD vs IR vs surgery - monitor H/H - continue clear liquid diet for now - rebleeding risk is high 12/12/17 09:39 Subjective: CC: f/u GI bleeding S: no melena overnight tolerating po clears no further hematemesis no abd pain no nausea no fever no chills Objective: Vital Signs Temp Pulse Resp BP Pulse Ox 36.8 C 60 20 136/62 H 94 12/12/17 07:56 12/12/17 07:56 12/12/17 07:56 12/12/17 07:56 12/12/17 07:56 Laboratory Results 12/12/17 08:00 12/12/17 04:22 12/11/17 12/12/17 12/13/17 05:59 05:59 05:59 Intake Total 1999 1103 Output Total 400 275 Balance 1999 703 -275 PT 14.4 SEC (12.0-15.0) 12/11/17 04:20 INR 1.10 (0.83-1.16) 12/11/17 04:20 Laboratory Tests 12/11/17 12/11/17 12/11/17 04:20 08:32 14:10 Hgb 9.1 L 8.0 L 6.4 L Hct 29.3 L 25.4 L 20.8 L 12/11/17 12/12/17 12/12/17 21:24 04:22 08:00 Hgb 7.8 L 7.6 L Hct 26.2 L 24.4 L 23.2 L Physical Exam - Physical Exam EENT: PERRL/EOMI Neck: full range of motion Respiratory: lungs clear, normal breath sounds Cardiac/Chest: normal peripheral pulses, regular rate, rhythm, No edema Abdomen: normal bowel sounds, non-tender, soft Skin: normal color Extremities: normal range of motion Neuro/Psych: no motor/sensory deficits ICD10 Worksheet Patient Problems: Problems Problem Status Onset Anemia Acute Increased anion gap metabolic acidosis Acute Upper GI bleed Acute Prostatitis Active
[2017-12-12] MEDS: NS 1,000 ML IV SCH (10:23)
--- NOTE | 2017-12-12 13:04 | HOSPPROG ---
Hospitalist Progress Note Assessment/Plan: Patient is a 67-year-old gentleman who presented the emergency room with heme at emesis. He developed some nausea and then had a syncopal episode and when he woke up he was covered in blood. He called 911 and was transferred to the emergency room. Today is my 1st encounter with the patient. Chart reviewed. * upper GI bleed (resolved) s/p EGD found to have high risk ulcer s/p 1 units of prbc -I discussed the case with Dr. Linder who will see patient in consult * acute blood loss anemia -cont to monitor for bleeding * hypotension -resolved * hypokalemia -on potassium protocol * anion gap acidosis -improving w hydration * hyperglycemia * chronic prostatitis * BPH will change to inpatient status since patient requires further hospital monitoring given the nature of his ulcer and risk for rebleeding Subjective: no abd pain. denies obvious bleeding Objective: Vital Signs Temp Pulse Resp BP Pulse Ox 36.9 C 63 16 162/73 H 97 12/12/17 11:24 12/12/17 11:24 12/12/17 11:24 12/12/17 11:24 12/12/17 11:24 Laboratory Results 12/12/17 08:00 12/12/17 04:22 12/11/17 12/12/17 12/13/17 05:59 05:59 05:59 Intake Total 1999 1103 Output Total 400 475 Balance 1999 703 -475 PT 14.4 SEC (12.0-15.0) 12/11/17 04:20 INR 1.10 (0.83-1.16) 12/11/17 04:20 - Physical Exam Constitutional: no apparent distress, appears nourished, not in pain Cardiovascular: regular rate and rhythym, no murmur, rub, or gallop Respiratory: no respiratory distress, no rales or rhonchi, clear to auscultation Gastrointestinal: normoactive bowel sounds, soft, non-tender abdomen, no palpable masses, No guarding, No rebound ICD10 Worksheet Patient Problems: Problems Problem Status Onset Prostatitis Active Upper GI bleed Acute Anemia Acute Increased anion gap metabolic acidosis Acute
--- NOTE | 2017-12-12 14:52 | GCON ---
[f rep st] CONSULTATION Asked to see the patient in consultation by Dr. Haim Polo in regard to recently diagnosed gastric ul cer. This 67-year-old male vomited blood yesterday, came to the emergency room where he was found to have a low hematocrit. Endoscopy revealed a large ulcer with a visible pulsating artery in its base. It was not actively bleeding. He was resuscitated with blood transfusions, placed on q.6 hour Protonix, a variety of diagnostic tests ordered including an H pylori serology, which is positive. ALLERGIES: None. MEDICATIONS: Currently, aspirin and ibuprofen, in particular. The patient has not had any previous ulcer symptoms. He does not take the aspirin for a cardiovascul ar risk, but for his chronic prostatitis. He has been seeing Dr. Jori Mas for prostatitis, althoug h he has not seen him recently. It sounds like the patient is self medicating his prostatitis. PHYSICAL EXAMINATION: GENERAL: Pleasant, awake, alert male in no distress. ABDOMEN: Soft, benign. No organomegaly. LABORATORY DATA: Laboratory tests are reviewed, and the abnormality is strictly a low hematocrit, as well as the H pylori. ASSESSMENT: Bleeding from an ulcer on the greater curve just outside the pylorus. This visible vess el is a sign of high risk for potential bleeding during the admission, but I would not recommend prop hylactic surgery. Should he bleed again, endoscopy with attempts to clip or otherwise control the ve ssel would be 1st choice. Interventional radiology can be considered, but if the patient is grossly unstable, operative intervention at that time might be necessary. The patient should be treated with maximal antacid treatment as he is, and I defer to Dr. Bradley, the GI wireless consultant as to when to initiate anti H pylori treatment. I discussed all this with the patient, explained that while I hope we do not believe there is a fair risk of it and that it might require operative intervention. /[id number]/MODL
--- NOTE | 2017-12-12 16:14 | ASMTCMCOM ---
CM Note CM Note Notes: Pt here w/upper GIB, gastric ulcer. Reviewed chart and discussed w/RN. Pt lives at home w/fiance. Anticipate pt will dc home independantly. CM avail if needs arise. Date Signed: 12/12/2017 04:13 PM Electronically Signed By:Deisy Haney RN
[2017-12-12] MEDS ORDERED: POTASSIUM Cl (KCl) 100 ML IV SCH (19:19)
[2017-12-13] MEDS: PANTOPRAZOLE SODIUM 40 MG VIAL IVP SCH ×4 (04:29→22:40)
[2017-12-13 05:33] LABS: PLATELET COUNT 190 10^3/uL (150-400)
--- NOTE | 2017-12-13 07:05 | SOAPPROG ---
[facility] Progress Note Assessment/Plan: Assessment: 1. GI BLEED/LARGE GASTRIC ULCER - h.pylori + NSAIDs - H/H stable but low - no further hematemesis - no further melena - h.pylori was positive - PPI IV BID, once taking regualr po, change to PO BID. Keep BID therapy indefinitely (ulcer may take many months to heal completely) - ok to start h.pylori therapy now (given pcn allergy - PPI BID, Bismuth subcitrate 300mg QID, tetracycline 500mg QID, metronidazole 250mg QID x 14d) - will need test of cure 8 weeks post therapy (my office can arrange) - stop NSAIDs - hope that bleeding does not resume - appreciate surgical consult - if has repeat bleeding, would plan repeat EGD prior to considering alternate therapy (IR vs surgical) - ok to advance diet today - if remains stable, consider further diet advancement - recommend f/u EGD in 8-12 weeks to confirm healing, my office will arrange - will sign off, call with questions 12/13/17 07:01 Subjective: CC: f/u GI bleed S: no melena no hematemesis no nausea tolerating clear liquids no fever some right sided pain no cp or sob Laboratory Tests 12/11/17 12/11/17 12/11/17 08:32 14:10 21:24 Hct 25.4 L 20.8 L 26.2 L H. pylori IgG Antibody 12/12/17 12/12/17 12/12/17 04:22 04:22 08:00 Hct 24.4 L 23.2 L H. pylori IgG Antibody POSITIVE H 12/13/17 04:42 Hct 23.5 L H. pylori IgG Antibody Objective: Vital Signs Temp Pulse Resp BP Pulse Ox 37.0 C 64 16 124/62 H 91 L 12/13/17 04:00 12/13/17 04:00 12/13/17 04:00 12/13/17 04:00 12/13/17 04:00 Laboratory Results 12/13/17 04:42 12/13/17 04:42 12/12/17 12/13/17 12/14/17 05:59 05:59 05:59 Intake Total 1103 2885 Output Total 400 1700 450 Balance 703 1185 -450 PT 14.4 SEC (12.0-15.0) 12/11/17 04:20 INR 1.10 (0.83-1.16) 12/11/17 04:20 Physical Exam - Physical Exam General Appearance: WD/WN, alert EENT: PERRL/EOMI Neck: non-tender Respiratory: lungs clear, normal breath sounds Cardiac/Chest: normal peripheral pulses, regular rate, rhythm, No edema Abdomen: normal bowel sounds, non-tender, soft Extremities: normal range of motion Neuro/Psych: no motor/sensory deficits ICD10 Worksheet Patient Problems: Problems Problem Status Onset Anemia Acute Increased anion gap metabolic acidosis Acute Upper GI bleed Acute Prostatitis Active
--- NOTE | 2017-12-13 08:12 | PDMN ---
Medical Necessity Medical necessity: M180 GIB upper A-2 days: fresh vol. blood in emesis, H/H trending downward ( 8.0,6.4, PRBC.. 8.4,7..8,7.6,7.3) further monitoring needed, high risk for rebleed with further monitoring, eval needed > 2 midnights - IV PRotonix, fluids
[2017-12-13] MEDS: metroNIDAZOLE 250 MG TAB PO SCH ×3 (12:31→23:35)
[2017-12-13] MEDS: BISMUTH SUBSALICYLATE 262 MG CHEWABLE TAB PO SCH ×3 (12:31→22:39)
[2017-12-13] MEDS: ACETAMINOPHEN 650 MG SUPP PR PRN (16:48)
[2017-12-13] MEDS ORDERED: POTASSIUM Cl (KCl) 100 ML IV SCH (17:57)
[2017-12-13] MEDS ORDERED: MAGNESIUM SULF 2 GM/WATER 50 ML IV ONE ×2 (17:57→21:45)
[2017-12-13] MEDS: POTASSIUM Cl (KCl) 10 MEQ in NS 100 ML IV SCH ×3 (18:19→21:36)
--- NOTE | 2017-12-13 20:18 | HOSPPROG ---
Hospitalist Progress Note Assessment/Plan: #UGI Bleed - visible non-bleeding vessel. Crispin 2A. Continue close monitoring for at least 72 hours after EGD. Continue PPI. Diet has been advanced by GI and seems to be tolerating thus far. Case reviewed with Dr. Lilly today. If rebleeding patient may need surgical intervention. #. ABLA - hemoglobin low but stable. H/H daily. Transfuse if less than 7.0. #. H Pylori - recommendations from GI noted. Challenge may be obtaining tetracycline. If non-serious PCN allergy could consider Amoxicillin 1,000mg bid + metronidazole 500mg BID and Clarithromycin 500mg BID + omeprazole 20mg BID regimen. #. HTN - controlled. No changes. #. DVT prophylaxis - SCD's. No lovenox in light of bleeding. # Dispo - depending on stability of hemoglobin. Subjective: No acute events overnight. Patient feeling reasonably well and advancing diet. He is happy about advancing his diet today. No new complaints. No black stool odr bloody stools. Objective: Vital Signs Temp Pulse Resp BP Pulse Ox 36.9 C 62 18 131/62 H 98 12/13/17 19:12 12/13/17 19:12 12/13/17 19:12 12/13/17 19:12 12/13/17 19:12 Laboratory Results 12/13/17 04:42 12/13/17 18:02 12/12/17 12/13/17 12/14/17 05:59 05:59 05:59 Intake Total 2885 3626 Output Total 1225 2500 Balance 1660 1126 PT 14.4 SEC (12.0-15.0) 12/11/17 04:20 INR 1.10 (0.83-1.16) 12/11/17 04:20 - Physical Exam Constitutional: no apparent distress, appears nourished, not in pain Cardiovascular: regular rate and rhythym, no murmur, rub, or gallop Respiratory: no respiratory distress, no rales or rhonchi, clear to auscultation Gastrointestinal: normoactive bowel sounds, soft, non-tender abdomen, no palpable masses Genitourinary: No chavez in urethra ICD10 Worksheet Patient Problems: Problems Problem Status Onset Anemia Acute Increased anion gap metabolic acidosis Acute Upper GI bleed Acute Prostatitis Active
[2017-12-14 05:43] LABS: PLATELET COUNT 228 10^3/uL (150-400)
[2017-12-14] MEDS: metroNIDAZOLE 250 MG TAB PO SCH ×4 (05:44→23:00)
[2017-12-14] MEDS: BISMUTH SUBSALICYLATE 262 MG CHEWABLE TAB PO SCH ×4 (05:44→19:57)
[2017-12-14] MEDS: PANTOPRAZOLE SODIUM 40 MG VIAL IVP SCH ×2 (05:45→10:11)
[2017-12-14] MEDS ORDERED: POTASSIUM CL 10 MEQ TAB PO ONE (10:00)
--- NOTE | 2017-12-14 12:07 | HOSPPROG ---
Hospitalist Progress Note Assessment/Plan: Patient is a 67-year-old gentleman who presented the emergency room with heme at emesis. He developed some nausea and then had a syncopal episode and when he woke up he was covered in blood. He called 911 and was transferred to the emergency room. * upper GI bleed -hemoglobin hematocrit are stable but low -has a visible non -bleeding vessel -cont ppi/will change to p.o. Twice daily today he should be on this indefinitely. -no future NSAIDs *H pylori -on treatment -given his penicillin allergy he will be on a PPI twice daily, bismuth subcitrate 300 mg four times daily, tetracycline 500 mg four times daily and metronidazole 250 mg four times daily for total 14 days -he will need a test of cure 8 weeks post therapy -he should get a follow-up EGD in 8-12 weeks to confirm healing, Dr. Butts's his office will arrange -if he has any further bleeding he will need an EGD * acute blood loss anemia -serial h & H * hypotension -resolved * hypokalemia -on potassium protocol * weakness due to the above - physical therapy and occupational therapy to work with him for strengthening exercises *Plan: Will recheck a hemoglobin hematocrit tomorrow. If he continues to be stable consider discharge. Explained to the patient his risk of bleeding and have asked that a family member stay with him on discharge. Subjective: Negro is feeling better but extremely weak Objective: Vital Signs Temp Pulse Resp BP Pulse Ox 36.8 C 59 L 16 118/56 L 94 12/14/17 11:24 12/14/17 11:24 12/14/17 11:24 12/14/17 11:24 12/14/17 11:24 Laboratory Results 12/14/17 04:56 12/14/17 04:56 12/13/17 12/14/17 12/15/17 05:59 05:59 05:59 Intake Total 2885 3976 Output Total 1225 3200 Balance 1660 776 PT 14.4 SEC (12.0-15.0) 12/11/17 04:20 INR 1.10 (0.83-1.16) 12/11/17 04:20 - Physical Exam Constitutional: not in pain, chronically ill appearing Eyes: PERRL Ears, Nose, Mouth, Throat: hearing normal Cardiovascular: regular rate and rhythym Respiratory: no respiratory distress Gastrointestinal: normoactive bowel sounds Skin: warm, No normal color (Very pale) Musculoskeletal: generalized weakness Neurologic: AAOx3 Psychiatric: interacting appropriately, not anxious ICD10 Worksheet Patient Problems: Problems Problem Status Onset Anemia Acute Increased anion gap metabolic acidosis Acute Upper GI bleed Acute Prostatitis Active
--- NOTE | 2017-12-14 15:41 | ASMTCMCOM ---
CM Note CM Note Notes: DC plan is for pt to go home independantly with . However, still feeling weak; PT/OT ordered. CM will follow. Date Signed: 12/14/2017 03:40 PM Electronically Signed By:Deisy Haney RN
[2017-12-14] MEDS: PANTOPRAZOLE SODIUM 40 MG TAB PO SCH (19:57)
[2017-12-14] MEDS: ACETAMINOPHEN 650 MG SUPP PR PRN (23:00)
[2017-12-15] MEDS: TAMSULOSIN HCL 0.4 MG CAP PO SCH ×2 (01:10→20:35)
[2017-12-15 05:06] LABS: PLATELET COUNT 231 10^3/uL (150-400)
[2017-12-15] MEDS: metroNIDAZOLE 250 MG TAB PO SCH ×4 (05:58→23:39)
[2017-12-15] MEDS: BISMUTH SUBSALICYLATE 262 MG CHEWABLE TAB PO SCH ×4 (05:58→20:35)
[2017-12-15] MEDS ORDERED: POTASSIUM CL 10 MEQ TAB PO ONE (07:02)
[2017-12-15] MEDS: PANTOPRAZOLE SODIUM 40 MG TAB PO SCH ×2 (08:21→20:35)
[2017-12-15] MEDS ORDERED: ACETAMINOPHEN 325 MG TAB PO PRN (08:36)
--- NOTE | 2017-12-15 10:15 | HOSPPROG ---
Hospitalist Progress Note Assessment/Plan: Patient is a 67-year-old gentleman who presented the emergency room with heme at emesis. He developed some nausea and then had a syncopal episode and when he woke up he was covered in blood. He called 911 and was transferred to the emergency room. * upper GI bleed -hemoglobin hematocrit are stable but low -has a visible non -bleeding vessel -cont ppi/will change to p.o. Twice daily today he should be on this indefinitely. -no future NSAIDs *H pylori -on treatment -given his penicillin allergy he will be on a PPI twice daily, bismuth subcitrate 300 mg four times daily, tetracycline 500 mg four times daily and metronidazole 250 mg four times daily for total 14 days -he will need a test of cure 8 weeks post therapy -he should get a follow-up EGD in 8-12 weeks to confirm healing, Dr. Butts's his office will arrange -if he has any further bleeding he will need an EGD * acute blood loss anemia -H & H have trended down -patient extremely weak due to this -will give him iv iron *acute urinary retention -has chronic prostatitis -will check a ua and culture -on flomax -may need a chavez and will need f/u with urology for a cystoscopy * hypotension -resolved * hypokalemia -on potassium protocol * weakness due to the above - physical therapy and occupational therapy to work with him for strengthening exercises *Plan: poss chavez placement; iron infusion, recheck labs in a.m. Subjective: Negro is extremely fatigued, wants to sleep. Objective: Vital Signs Temp Pulse Resp BP Pulse Ox 36.6 C 65 18 139/70 H 93 12/15/17 07:23 12/15/17 07:23 12/15/17 07:23 12/15/17 07:23 12/15/17 07:23 Laboratory Results 12/15/17 04:35 12/15/17 04:35 12/14/17 12/15/17 12/16/17 05:59 05:59 05:59 Intake Total 3976 490 Output Total 3200 400 200 Balance 776 90 -200 PT 14.4 SEC (12.0-15.0) 12/11/17 04:20 INR 1.10 (0.83-1.16) 12/11/17 04:20 - Physical Exam Constitutional: not in pain, chronically ill appearing Eyes: PERRL Ears, Nose, Mouth, Throat: hearing normal Respiratory: no respiratory distress Gastrointestinal: normoactive bowel sounds Skin: warm, No normal color (pale) Musculoskeletal: generalized weakness Neurologic: AAOx3 Psychiatric: interacting appropriately ICD10 Worksheet Patient Problems: Problems Problem Status Onset Anemia Acute Increased anion gap metabolic acidosis Acute Upper GI bleed Acute Prostatitis Active
[2017-12-15] MEDS: SODIUM FERRIC GLUCONAT/SUCROSE 125 MG in NS 100 ML IV SCH (10:47)
[2017-12-16 04:51] LABS: PLATELET COUNT 261 10^3/uL (150-400)
[2017-12-16] MEDS: metroNIDAZOLE 250 MG TAB PO SCH ×2 (05:46→13:12)
[2017-12-16] MEDS: BISMUTH SUBSALICYLATE 262 MG CHEWABLE TAB PO SCH ×2 (05:46→13:12)
[2017-12-16 08:18] VITALS: BP 117/57; PULSE 66; RESP 12; TEMP 98.4; O2SAT 94
[2017-12-16] MEDS: PANTOPRAZOLE SODIUM 40 MG TAB PO SCH (08:58)
[2017-12-16] MEDS: SODIUM FERRIC GLUCONAT/SUCROSE 125 MG in NS 100 ML IV SCH (09:10)
--- NOTE | 2017-12-16 11:06 | HOSPPROG ---
Hospitalist Progress Note Assessment/Plan: Patient is a 67-year-old gentleman who presented the emergency room with heme at emesis. He developed some nausea and then had a syncopal episode and when he woke up he was covered in blood. He called 911 and was transferred to the emergency room. * upper GI bleed -hemoglobin hematocrit are stable but low -has a visible non -bleeding vessel -cont ppi/will change to p.o. Twice daily today he should be on this indefinitely. -no future NSAIDs *H pylori -on treatment -given his penicillin allergy he will be on a PPI twice daily, bismuth subcitrate 300 mg four times daily, tetracycline 500 mg four times daily and metronidazole 250 mg four times daily for total 14 days -he will need a test of cure 8 weeks post therapy -he should get a follow-up EGD in 8-12 weeks to confirm healing, Dr. Butts's his office will arrange -if he has any further bleeding he will need an EGD * acute blood loss anemia -H & H have trended down -patient extremely weak due to this -will give him iv iron *acute urinary retention -has chronic prostatitis -urine cx shows no growth, ua w +rbc, few wbc -on Flomax -Tovar, will need f/u with urology for a cystoscopy * hypotension -resolved * hypokalemia -on potassium protocol * weakness due to the above - physical therapy and occupational therapy to work with him for strengthening exercises *Plan: Call into urology to be sure he gets close f/u. Tovar in place at [place] and RN to teach him how to care for. Attempted to call his PCP but she is off today, spoke with the PA, Zunilda Nieto, who works in the same pod at [facility] to update on him and to be sure he gets close f/u. An appointment for this coming Saturday at 9 a.m. has been arranged. He will need a repeat hgb and hct checked at that time. Subjective: Negro is feeling much better today. Energy is slowly improving. Objective: Vital Signs Temp Pulse Resp BP Pulse Ox 36.9 C 66 12 117/57 L 94 12/16/17 08:00 12/16/17 08:00 12/16/17 08:00 12/16/17 08:00 12/16/17 08:00 Laboratory Results 12/16/17 04:26 12/16/17 04:26 12/15/17 12/16/17 12/17/17 05:59 05:59 05:59 Intake Total 490 110 Output Total 400 3425 Balance 90 -3315 PT 14.4 SEC (12.0-15.0) 12/11/17 04:20 INR 1.10 (0.83-1.16) 12/11/17 04:20 - Physical Exam Constitutional: no apparent distress, appears nourished, not in pain Eyes: PERRL Ears, Nose, Mouth, Throat: hearing normal Respiratory: no respiratory distress Skin: warm, No normal color (pale) Musculoskeletal: generalized weakness Neurologic: AAOx3 Psychiatric: interacting appropriately ICD10 Worksheet Patient Problems: Problems Problem Status Onset Anemia Acute Increased anion gap metabolic acidosis Acute Upper GI bleed Acute Prostatitis Active
--- NOTE | 2017-12-16 17:40 | GDS ---
[f rep st] DISCHARGE SUMMARY DISCHARGE DIAGNOSES: 1. Upper gastrointestinal bleed with a visible nonbleeding vessel. 2. Helicobacter pylori. 3. Acute blood loss anemia. 4. Acute urinary retention. 5. Hypertension. 6. Hypokalemia. 7. Weakness due to the above. CONSULTATIONS: 1. Dr. Bradley. 2. Dr. Wesley Linder. HOSPITAL COURSE: The patient is a very nice 67-year-old gentleman who has a history of hypertension, prostatitis, and a murmur. He presented to the emergency department after having several episodes of hematemesis and syncope. He woke up with a sensation of something in his throat and developed nausea. He had an episode of syncope and when he woke up, he was covered in blood. He called 9-- and was transferred to the emergency room. He was seen by Dr. Bradley. He had an upper GI endoscopy which showed a very large ulcer, greater than 30 mm with a large blood vessel, possibly being 3-4 mm coursing across the base of the ulcer. Given the size of the ulcer, he did not see a bleeding vessel, so he did not do any endoscopic therapy. He was transfused packed red blood cells and monitored during his stay. Subsequently, he was evaluated by Dr. Wesley Linder. He noted that visible vessel is a sign of a high risk for potential bleeding during the admission, but he did not recommend any type of prophylactic surgery. Should he bleed again, endoscopy, should try to clip; otherwise, control of the vessel would be the 1st choice. He also was noted to have H pylori and started on treatment. His hemoglobin, hematocrit have stayed overall stable during his stay since getting the transfusion. He has also been given iron infusions. I have spoken with the physican assistant curator who works along side with the patient' s primary care provider, and she will follow up with him. In addition, he had difficulty with urination and was unable to void without a Tovar being placed. Urology will follow up with him in the outpatient setting for a possible outpatient cystoscopy. HOSPITAL COURSE PER PROBLEM: 1. Upper GI bleed with a visible nonbleeding vessel. He will be on a PPI indefinitely, b.i.d. He cannot take any NSAIDs. He will get a repeat hemoglobin, hematocrit at the end of this week with his primary care provider. 2. H pylori. He is on treatment. Given his penicillin allergy, he will be on bismuth subcitrate, tetracycline, and metronidazole for 14 days. He will need a test of cure, 8 weeks. He also needs an EGD in 8-12 weeks to confirm healing. Dr. Bradley's office will arrange this. 3. Acute blood loss anemia. Stable. 4. Hypertension, stable. 5. Hypokalemia, treated with potassium protocol. 6. Weakness due to the acute anemia, slowly improving. DISCHARGE CONDITION: Stable. Blood pressure is 117/57, heart rate is 66, respiratory rate is 12, O2 saturation on room air 94%, temperature is 36.9 Celsius. MEDICATIONS AT DISCHARGE: Please see the EMR. DISCHARGE INSTRUCTIONS: 1. To stop all NSAIDs. 2. Take Protonix b.i.d. indefinitely. 3. To continue treatment for the H pylori. 4. He has a followup with Dr. Sloan at [facility] at 9 a.m. this Saturday. 5. Dr. aKitlin Chua, urologist. Her office will call him to set up a followup appointment. 6. To get a repeat EGD in 8-[address] Bradley's office will follow up with him. Greater than 30 minutes discharging and coordinating the patient's care. /[id number]/MODL MTDD
== END 2017-12-16 14:07 | disposition home or self-care (01) | DRG 378 ==
LOC: EDUNIT# → F3E 06:05 → OBSVTOIN 12-12 13:01
PROVIDERS: ADMIT Family Medicine; ATTEND Family Medicine
PROC: 30233N1 Transfusion of Nonautologous Red Blood Cells into Peripheral Vein, Percutaneous Approach (ICD-10-PCS; principal; 2017-12-12)
PROC: 0DJ08ZZ Inspection of Upper Intestinal Tract, Via Natural or Artificial Opening Endoscopic (ICD-10-PCS; principal; 2017-12-12)
DX: K25.4 Chronic or unspecified gastric ulcer with hemorrhage (principal); D62 Acute posthemorrhagic anemia; B96.81 Helicobacter pylori [H. pylori] as the cause of diseases classified elsewhere; E87.1 Hypo-osmolality and hyponatremia; E87.6 Hypokalemia; R73.9 Hyperglycemia, unspecified; N41.1 Chronic prostatitis; R33.9 Retention of urine, unspecified; I10 Essential (primary) hypertension; F17.210 Nicotine dependence, cigarettes, uncomplicated
CPT/HCPCS: 96374; 97165-GO; G0378; G8987-GO-CI; G8988-GO-CH; G8989-GO-CH; J0171; J2060; J2405; J2704; J2916; J3475; J3480; P9016